=== PATIENT | female | born 1935 | race Caucasian/White ===

== ENCOUNTER 2021-03-31 17:23 | Emergency (ER) | payer MEDICARE ==
[2021-03-31 17:51] VITALS: RESP 16; TEMP 98.2
[2021-03-31 18:29] LABS: Basophils # (A) 0.1 k/uL (0-0.2); Basophils % (A) 1 %; Eosinophils # (A) 0.1 k/uL (0-0.7); Eosinophils % (A) 2 %; HCT 40.9 % (34.0-46.0); HGB 13.2 gm/dL (11.4-16.0); Lymphocytes # (A) 2.6 k/uL (1.0-4.8); Lymphocytes % (A) 39 %; MCH 31.2 pg (25.0-35.0); MCHC 32.3 g/dL (31.0-37.0); MCV 96.6 fL (80.0-100.0); Mean Platelet Volume 7.4; Monocytes # (A) 0.6 k/uL (0-1.0); Monocytes % (A) 9 %; Neutrophils # (A) 3.2 k/uL (1.3-7.7); Neutrophils % (A) 48 %; Platelet Count 333 k/uL (150-450); RBC 4.23 m/uL (3.80-5.40); RDW 13.8 % (11.5-15.5); WBC 6.7 k/uL (3.8-10.6)
[2021-03-31 18:44] LABS: ALT 18 U/L (4-34); AST 49 U/L (14-36); African American GFR (CKD) 45 (>60 ml/min/1.73 sqM); Albumin 4.2 g/dL (3.5-5.0); Alcohol <10 mg/dL; Alkaline Phosphatase 82 U/L (38-126); Anion Gap 10 mmol/L; Blood Urea Nitrogen 22 mg/dL (7-17); Calcium 9.6 mg/dL (8.4-10.2); Carbon Dioxide 23 mmol/L (22-30); Chloride 100 mmol/L (98-107); Glucose 91 mg/dL (74-99); Non-African American GFR(CKD) 39 (>60 ml/min/1.73 sqM); Sodium 133 mmol/L (137-145); Total Bilirubin 0.9 mg/dL (0.2-1.3); Total Protein 7.3 g/dL (6.3-8.2)
[2021-03-31 18:46] LABS: Potassium 5.4 mmol/L (3.5-5.1)
--- NOTE | 2021-03-31 18:52 | ED ---
Psych HPI - General Chief Complaint: Psychiatric Symptoms Stated Complaint: Mental Health,Sent in by PCP Time Seen by Provider: 03/31/21 17:52 Source: patient Mode of arrival: ambulatory - History of Present Illness Initial Comments: This 86-year-old female presents to the emergency department for suicidal comments and for a psychiatric evaluation. Patient lives at home with daughter who states she has been threatening committing suicide for years, however, 2 days ago she took out a pair of scissors and held them to her abdomen. Patient's daughter then took all sharp objects out of the house and put them were patient could not get them. Patient then stated "Well if youre going to take everything sharp of the house, I will just go into the street and get hit by a car." While talking to the patient, she states she has been diagnosed with depression but does not take any medication for it. She does not see a psychiatrist and has never in her past. Patient denies ever holding scissors up and threatening to kill herself. Patient states she does sometimes feel like she wants to , however, she states " I wouldn't actually be able to do it." Patient states she is not currently suicidal and never has wanted to hurt anybody else. Denies any chest pain, shortness breath, abdominal pain, change in bowel or bladder, headache, dizziness, change in vision. - Related Data Home Medications Medication Instructions Recorded Confirmed Cholecalciferol [Vitamin D3 (25 25 mcg PO DAILY 03/31/21 03/31/21 Mcg = 1000 Iu)] Clopidogrel [Plavix] 75 mg PO DAILY 03/31/21 03/31/21 Cyanocobalamin (Vitamin B-12) 1,000 mcg PO DAILY 03/31/21 03/31/21 [Vitamin B-12] Levothyroxine Sodium [Synthroid] 75 mcg PO DAILY 03/31/21 03/31/21 Melatonin Unknown Dose 1 tab PO HS 03/31/21 03/31/21 Metoprolol Tartrate [Lopressor] 50 mg PO TID 03/31/21 03/31/21 Multivitamins, Thera [Multivitamin 1 tab PO DAILY 03/31/21 03/31/21 (formulary)] Pantoprazole [Protonix] 40 mg PO DAILY 03/31/21 03/31/21 Verapamil HCl [Verapamil ER] 240 mg PO DAILY 03/31/21 03/31/21 Allergies Allergy/AdvReac Type Severity Reaction Status Date / Time No Known Allergies Allergy Verified 03/31/21 19:37 Review of Systems ROS Statement: Those systems with pertinent positive or pertinent negative responses have been documented in the HPI. ROS Other: All systems not noted in ROS Statement are negative. Past Medical History Past Medical History: COPD, CVA/TIA, Hypertension Additional Past Medical History / Comment(s): hard of hearing. arthritis. dementia History of Any Multi-Drug Resistant Organisms: None Reported Past Surgical History: No Surgical Hx Reported Past Psychological History: No Psychological Hx Reported Smoking Status: Never smoker Past Alcohol Use History: None Reported Past Drug Use History: None Reported General Exam Limitations: no limitations General appearance: alert, in no apparent distress Head exam: Present: atraumatic, normocephalic ENT exam: Present: normal exam, mucous membranes moist Neck exam: Present: normal inspection, full ROM Respiratory exam: Present: normal lung sounds bilaterally. Absent: respiratory distress, wheezes, rales, rhonchi, stridor Cardiovascular Exam: Present: regular rate, normal rhythm, normal heart sounds. Absent: systolic murmur, diastolic murmur, rubs, gallop, clicks GI/Abdominal exam: Present: soft, normal bowel sounds. Absent: distended, tenderness, guarding, rebound, rigid Extremities exam: Present: normal inspection, full ROM Back exam: Present: normal inspection, full ROM. Absent: CVA tenderness (R), CVA tenderness (L) Neurological exam: Present: alert, oriented X3, CN II-XII intact Psychiatric exam: Present: normal affect, depressed Skin exam: Present: warm, dry, intact, normal color. Absent: rash Course Vital Signs 03/31/21 17:39 Temperature 98.2 F Pulse Rate 74 Respiratory 16 Rate Blood Pressure 140/87 O2 Sat by Pulse 97 Oximetry Medical Decision Making - Medical Decision Making This 86-year-old female was brought into the emergency department with suicidal threats worsening over the last couple weeks. Patient's daughter called an ambulance to have her brought here. Patient states she was having a great day until she got into an argument with her daughter and stated she just wants God to take her, however she does not actually want to . CBC unremarkable, sodium 133, potassium 1.4 (slightly hemolyzed), BUN 22, creatinine 1.27, urine unremarkable, toxicology urine opiates detected. Patient seen and evaluated by EPS, they did not recommend the patient be ad mitted to inpatient psychiatry services as she did not meet requirements. Patient and daughter agreeable to plan to return home and follow up with psychiatry and primary care provider in next 1-2 days. Patient states she is not suicidal and does not want to harm or hurt anybody else. Strict return precautions given. Patient sent home in stable condition. Attending is Dr. Arellano - Lab Data Result diagrams: 03/31/21 18:24 03/31/21 18:24 Lab Results 03/31/21 03/31/21 03/31/21 Range/Units 18:24 18:24 19:12 WBC 6.7 (3.8-10.6) k/uL RBC 4.23 (3.80-5.40) m/uL Hgb 13.2 (11.4-16.0) gm/dL Hct 40.9 (34.0-46.0) % MCV 96.6 (80.0-100.0) fL MCH 31.2 (25.0-35.0) pg MCHC 32.3 (31.0-37.0) g/dL RDW 13.8 (11.5-15.5) % Plt Count 333 (150-450) k/uL MPV 7.4 Neutrophils % 48 % Lymphocytes % 39 % Monocytes % 9 % Eosinophils % 2 % Basophils % 1 % Neutrophils # 3.2 (1.3-7.7) k/uL Lymphocytes # 2.6 (1.0-4.8) k/uL Monocytes # 0.6 (0-1.0) k/uL Eosinophils # 0.1 (0-0.7) k/uL Basophils # 0.1 (0-0.2) k/uL Sodium 133 L (137-145) mmol/L Potassium 5.4 H (3.5-5.1) mmol/L Chloride 100 (98-107) mmol/L Carbon Dioxide 23 (22-30) mmol/L Anion Gap 10 mmol/L BUN 22 H (7-17) mg/dL Creatinine 1.27 H (0.52-1.04) mg/dL Est GFR (CKD-EPI)AfAm 45 (>60 ml/min/1.73 sqM) Est GFR (CKD-EPI)NonAf 39 (>60 ml/min/1.73 sqM) Glucose 91 (74-99) mg/dL Calcium 9.6 (8.4-10.2) mg/dL Total Bilirubin 0.9 (0.2-1.3) mg/dL AST 49 H (14-36) U/L ALT 18 (4-34) U/L Alkaline Phosphatase 82 (38-126) U/L Total Protein 7.3 (6.3-8.2) g/dL Albumin 4.2 (3.5-5.0) g/dL Urine Color Urine Appearance (Clear) Urine pH (5.0-8.0) Ur Specific [place] (1.001-1.035) Urine Protein (Negative) Urine Glucose (UA) (Negative) Urine Ketones (Negative) Urine Blood (Negative) Urine Nitrite (Negative) Urine Bilirubin (Negative) Urine Urobilinogen (<2.0) mg/dL Ur Leukocyte Esterase (Negative) Urine Opiates Screen Detected H (NotDetected) Ur Oxycodone Screen Not Detected (NotDetected) Urine Methadone Screen Not Detected (NotDetected) Ur Propoxyphene Screen Not Detected (NotDetected) Ur Barbiturates Screen Not Detected (NotDetected) U Tricyclic Antidepress Not Detected (NotDetected) Ur Phencyclidine Scrn Not Detected (NotDetected) Ur Amphetamines Screen Not Detected (NotDetected) U Methamphetamines Scrn Not Detected (NotDetected) U Benzodiazepines Scrn Not Detected (NotDetected) Urine Cocaine Screen Not Detected (NotDetected) U Marijuana (THC) Screen Not Detected (NotDetected) Serum Alcohol <10 mg/dL 03/31/21 Range/Units 19:12 WBC (3.8-10.6) k/uL RBC (3.80-5.40) m/uL Hgb (11.4-16.0) gm/dL Hct (34.0-46.0) % MCV (80.0-100.0) fL MCH (25.0-35.0) pg MCHC (31.0-37.0) g/dL RDW (11.5-15.5) % Plt Count (150-450) k/uL MPV Neutrophils % % Lymphocytes % % Monocytes % % Eosinophils % % Basophils % % Neutrophils # (1.3-7.7) k/uL Lymphocytes # (1.0-4.8) k/uL Monocytes # (0-1.0) k/uL Eosinophils # (0-0.7) k/uL Basophils # (0-0.2) k/uL Sodium (137-145) mmol/L Potassium (3.5-5.1) mmol/L Chloride (98-107) mmol/L Carbon Dioxide (22-30) mmol/L Anion Gap mmol/L BUN (7-17) mg/dL Creatinine (0.52-1.04) mg/dL Est GFR (CKD-EPI)AfAm (>60 ml/min/1.73 sqM) Est GFR (CKD-EPI)NonAf (>60 ml/min/1.73 sqM) Glucose (74-99) mg/dL Calcium (8.4-10.2) mg/dL Total Bilirubin (0.2-1.3) mg/dL AST (14-36) U/L ALT (4-34) U/L Alkaline Phosphatase (38-126) U/L Total Protein (6.3-8.2) g/dL Albumin (3.5-5.0) g/dL Urine Color Yellow Urine Appearance Clear (Clear) Urine pH 5.5 (5.0-8.0) Ur Specific [place] 1.015 (1.001-1.035) Urine Protein Negative (Negative) Urine Glucose (UA) Negative (Negative) Urine Ketones Negative (Negative) Urine Blood Negative (Negative) Urine Nitrite Negative (Negative) Urine Bilirubin Negative (Negative) Urine Urobilinogen <2.0 (<2.0) mg/dL Ur Leukocyte Esterase Negative (Negative) Urine Opiates Screen (NotDetected) Ur Oxycodone Screen (NotDetected) Urine Methadone Screen (NotDetected) Ur Propoxyphene Screen (NotDetected) Ur Barbiturates Screen (NotDetected) U Tricyclic Antidepress (NotDetected) Ur Phencyclidine Scrn (NotDetected) Ur Amphetamines Screen (NotDetected) U Methamphetamines Scrn (NotDetected) U Benzodiazepines Scrn (NotDetected) Urine Cocaine Screen (NotDetected) U Marijuana (THC) Screen (NotDetected) Serum Alcohol mg/dL Disposition Clinical Impression: Depression Disposition: HOME SELF-CARE Condition: Stable Instructions (If sedation given, give patient instructions): Suicide Prevention (ED), Depression in Older Adults (ED) Additional Instructions: Please return to the emergency department with any concerning, new, worsening symptoms. Please follow up with primary care provider or psychiatrist next 1-2 days. Is patient prescribed a controlled substance at d/c from ED?: No Referrals: Stanley Mccann MD [Primary Care Provider] - 1-2 days Decision Time: 22:14
[2021-03-31 19:20] LABS: Appearance,Urine Clear (Clear); Bilirubin,Urine Negative (Negative); Blood,Urine Negative (Negative); Color,Urine Yellow; Glucose,Urine (UA) Negative (Negative); Ketones,Urine Negative (Negative); Leukocyte Esterase,Urine Negative (Negative); Nitrite,Urine Negative (Negative); PH, Urine 5.5 (5.0-8.0); Protein,Urine Negative (Negative); Specific Gravity,Urine 1.015 (1.001-1.035); Urobilinogen,Urine <2.0 mg/dL (<2.0)
[2021-03-31] MEDS ORDERED: SODIUM CHLORIDE 0.9% 500 ML 500 ML IV STA (19:40)
[2021-03-31 19:52] LABS: Amphetamine Screen,Urine Not Detected (NotDetected); Barbiturate Screen,Urine Not Detected (NotDetected); Benzodiazepines Screen,Urine Not Detected (NotDetected); Cocaine Screen,Urine Not Detected (NotDetected); Methadone Screen, Urine Not Detected (NotDetected); Opiate Screen,Urine Detected (NotDetected); Oxycodone Screen, Urine Not Detected (NotDetected); Phencyclidine Screen,Urine Not Detected (NotDetected); Tricyclic Antidepressant,Urine Not Detected (NotDetected); Urn Cannabinoid Scrn Not Detected (NotDetected)
[2021-03-31 22:39] VITALS: BP 132/76; PULSE 76
== END 2021-03-31 22:38 | disposition home or self-care (01) ==
LOC: EC 17:23
DX: F32.A Depression, unspecified (principal); J44.9 Chronic obstructive pulmonary disease, unspecified; I10 Essential (primary) hypertension; Z79.02 Long term (current) use of antithrombotics/antiplatelets; Z86.73 Personal history of transient ischemic attack (TIA), and cerebral infarction without residual deficits
CPT/HCPCS: 99284; 36415; 80053; 85025; 81003; 80306; G0480; 80320

== ENCOUNTER 2022-09-30 15:17 | Inpatient (IN) | payer MEDICARE ==
[2022-09-30] MEDS: SODIUM CHLORIDE 0.9% 500 ML 500 ML IV SCH ×3 (15:52→18:07)
[2022-09-30 15:56] LABS: Anisocytosis Slight; Basophils % (A) 0 %; Eosinophils # (A) 0.1 k/uL (0-0.7); Eosinophils % (A) 0 %; HCT 40.6 % (34.0-46.0); HGB 12.1 gm/dL (11.4-16.0); Hypochromasia Marked; Lymphocytes # (A) 1.2 k/uL (1.0-4.8); Lymphocytes % (A) 8 %; MCH 29.6 pg (25.0-35.0); MCHC 29.8 g/dL (31.0-37.0); MCV 99.4 fL (80.0-100.0); Macrocytosis Slight; Mean Platelet Volume 8.8; Monocytes # (A) 0.6 k/uL (0-1.0); Monocytes % (A) 4 %; Neutrophils # (A) 11.7 k/uL (1.3-7.7); Neutrophils % (A) 86 %; Platelet Count 552 k/uL (150-450); RBC 4.09 m/uL (3.80-5.40); WBC 13.7 k/uL (3.8-10.6)
[2022-09-30 16:06] LABS: ALT 18 U/L (4-34); AST 33 U/L (14-36); African American GFR (CKD) 54 (>60 ml/min/1.73 sqM); Albumin 3.4 g/dL (3.5-5.0); Alkaline Phosphatase 183 U/L (38-126); Anion Gap 10 mmol/L; Blood Urea Nitrogen 66 mg/dL (7-17); Carbon Dioxide 32 mmol/L (22-30); Chloride 117 mmol/L (98-107); Glucose 88 mg/dL (74-99); Non-African American GFR(CKD) 47 (>60 ml/min/1.73 sqM); Sodium 159 mmol/L (137-145); Total Bilirubin 1.7 mg/dL (0.2-1.3); Total Protein 6.3 g/dL (6.3-8.2)
[2022-09-30 16:21] LABS: Appearance,Urine Turbid (Clear); Bacteria,Urine Occasional /hpf; Bilirubin,Urine Negative (Negative); Blood,Urine Small (Negative); Color,Urine Yellow; Glucose,Urine (UA) Negative (Negative); Ketones,Urine Negative (Negative); Leukocyte Esterase,Urine Large (Negative); Mucus,Urine Rare /hpf; Nitrite,Urine Negative (Negative); PH, Urine 7.5 (5.0-8.0); Protein,Urine 1+ (Negative); RBC,Urine 21 /hpf (0-5); Specific Gravity,Urine 1.012 (1.001-1.035); Squamous Epithelial Cell,Urine <1 /hpf (0-4); Triple Phosphate Crystal,Urine Few /hpf; WBC,Urine 125 /hpf (0-5)
[2022-09-30 16:21] LABS: Partial Thromboplastin Time 22.9 sec (22.0-30.0); Prothrombin Time 10.8 sec (9.0-12.0)
--- NOTE | 2022-09-30 16:30 | XR ---
EXAMINATION TYPE: XR chest 1V portable DATE OF EXAM: 09/30/2022 Comparison: None Clinical History: 87-year-old female with Fever Findings: S-shaped scoliosis. Heart mildly enlarged. Hyperinflation. Interstitial prominence. Chronic full-thic kness rotator cuff tears in both shoulders. ACDF hardware. No consolidation or pleural effusion. IMPRESSION: 1. Mild cardiomegaly and COPD. Interstitial prominence could represent superimposed acute bronchitis. 2. Otherwise, no acute process seen. 3. Scoliosis and chronic full-thickness rotator cuff tears on both sides.
--- NOTE | 2022-09-30 17:45 | CT ---
EXAMINATION TYPE: CT angio chest DATE OF EXAM: 09/30/2022 COMPARISON: Radiograph 09/30/2022 HISTORY: 87-year-old female SOB, elevated d-dimer TECHNIQUE: Contiguous axial scanning of the chest performed with IV Contrast, patient injected with 8 0 mL of Isovue 370. Coronal/sagittal MIP reconstructions performed. CT DLP: 155.8 mGycm Automated exposure control for dose reduction was used. FINDINGS: The heart is borderline enlarged. No pericardial effusion. Moderate atherosclerotic calcifications. Conventional arch vessel branching anatomy. No thoracic lymphadenopathy by CT size criteria. Satisfactory opacification pulmonary arterial system without evidence for pulmonary embolus. Septal lines. Right apical pleural-parenchymal scarring. Patchy interstitial changes bilaterally. Mil d groundglass in the left base. Patchy opacity posterior right base. No pleural effusion. Some retained fluid seen throughout the thoracic esophagus. Partially visualized diffuse prominence t o the main pancreatic duct, upper limits of normal at 3 mm. S-shaped scoliosis. T5 vertebral compression deformity is age indeterminate but probably chronic give n the lack of any surrounding inflammation. Bilateral chronic full-thickness rotator cuff tears. Adva nced degenerative change both shoulders. IMPRESSION: 1. NO EVIDENCE FOR PULMONARY EMBOLUS. 2. COPD. 3. Scattered septal thickening and patchy interstitial changes bilaterally. Patchy opacity posterior right base and mild groundglass in the left base. Correlate to exclude atypical pneumonia or mild pul monary vascular congestion. 4. Some retained fluid seen throughout the thoracic esophagus could be due to esophageal dysmotility or gastroesophageal reflux disease. 5. S-shaped scoliosis, osteopenia, and suspected chronic T5 vertebral compression collapse. Bilateral rotator cuff arthropathy.
[2022-09-30] MEDS ORDERED: cefTRIAXone IN SWFI 1,000 MG/10 ML SYRINGE IVP STA (17:53)
--- NOTE | 2022-09-30 18:56 | ED ---
General Adult HPI - General Chief complaint: Altered Mental Status Stated complaint: AMS Time Seen by Provider: 09/30/22 15:19 Source: patient Mode of arrival: EMS Limitations: altered mental status - History of Present Illness Initial comments: This is a 87-year-old female who was sent into the emergency department by her nursing facility for altered mental status. It was reported by EMS and the assisted that the patient was altered the last 24 hours and was sent in. Per the patient's records, the patient suffered a right hip fracture and was sent to the assisted for rehabilitation suffering a fracture on September 15. The patient was reportedly ANO 3 previously but this was not confirmed by EMS nor by the nursing facility. On arrival, the patient was nonverbal and unable to answer any questions. The patient had normal vital signs and did not appear in any acute distress however. No further history was obtained at this time by the patient nor by EMS nor by the assisted. - Related Data Home Medications Medication Instructions Recorded Confirmed Cholecalciferol [Vitamin D3 (25 25 mcg PO DAILY 03/31/21 03/31/21 Mcg = 1000 Iu)] Clopidogrel [Plavix] 75 mg PO DAILY 03/31/21 03/31/21 Cyanocobalamin (Vitamin B-12) 1,000 mcg PO DAILY 03/31/21 03/31/21 [Vitamin B-12] Levothyroxine Sodium [Synthroid] 75 mcg PO DAILY 03/31/21 03/31/21 Melatonin Unknown Dose 1 tab PO HS 03/31/21 03/31/21 Metoprolol Tartrate [Lopressor] 50 mg PO TID 03/31/21 03/31/21 Multivitamins, Thera [Multivitamin 1 tab PO DAILY 03/31/21 03/31/21 (formulary)] Pantoprazole [Protonix] 40 mg PO DAILY 03/31/21 03/31/21 Verapamil HCl [Verapamil ER] 240 mg PO DAILY 03/31/21 03/31/21 Allergies Allergy/AdvReac Type Severity Reaction Status Date / Time No Known Allergies Allergy Verified 09/30/22 18:54 Review of Systems ROS Statement: Those systems with pertinent positive or pertinent negative responses have been documented in the HPI. ROS Other: All systems not noted in ROS Statement are negative. Past Medical History Past Medical History: COPD, CVA/TIA, Hypertension Additional Past Medical History / Comment(s): hard of hearing. arthritis. dementia History of Any Multi-Drug Resistant Organisms: None Reported Past Surgical History: No Surgical Hx Reported Past Psychological History: No Psychological Hx Reported Smoking Status: Never smoker Past Alcohol Use History: None Reported Past Drug Use History: None Reported General Exam Limitations: altered mental status (ANOx0) General appearance: in no apparent distress, lethargic Head exam: Present: atraumatic, normocephalic, normal inspection Eye exam: Present: normal appearance Pupils: Present: normal accommodation ENT exam: Present: normal exam, normal oropharynx, mucous membranes moist Neck exam: Present: normal inspection, full ROM Respiratory exam: Present: normal lung sounds bilaterally Cardiovascular Exam: Present: regular rate, normal rhythm, normal heart sounds GI/Abdominal exam: Present: soft, normal bowel sounds Extremities exam: Present: normal inspection, full ROM Back exam: Present: normal inspection, full ROM Neurological exam: Present: altered Psychiatric exam: Present: other (Lethargic) Skin exam: Present: warm, dry Course Vital Signs 09/30/22 09/30/22 09/30/22 15:23 15:26 15:30 Temperature 98.9 F Pulse Rate 100 93 98 Respiratory 40 H Rate Blood Pressure 133/74 133/74 O2 Sat by Pulse 98 99 Oximetry 09/30/22 09/30/22 09/30/22 15:40 15:50 15:52 Temperature Pulse Rate 98 98 98 Respiratory 40 H Rate Blood Pressure 133/74 133/74 114/67 O2 Sat by Pulse 98 97 Oximetry 09/30/22 09/30/22 09/30/22 16:00 16:10 16:20 Temperature Pulse Rate 101 H 81 89 Respiratory 40 H Rate Blood Pressure 114/67 131/71 131/71 O2 Sat by Pulse 95 Oximetry 09/30/22 09/30/22 09/30/22 16:29 16:30 16:40 Temperature Pulse Rate 80 80 80 Respiratory 12 Rate Blood Pressure 115/62 131/71 115/62 O2 Sat by Pulse 90 L Oximetry 09/30/22 09/30/22 09/30/22 16:50 17:00 17:20 Temperature Pulse Rate 81 94 69 Respiratory 24 Rate Blood Pressure 115/62 115/62 O2 Sat by Pulse 68 L 98 71 L Oximetry 09/30/22 09/30/22 09/30/22 17:30 17:40 17:50 Temperature Pulse Rate 71 68 75 Respiratory Rate Blood Pressure 111/66 111/66 O2 Sat by Pulse 100 98 Oximetry EKG Findings - EKG Comments: EKG Findings:: An EKG was obtained and was interpreted by myself showing a rate of 95, IA interval 150, QR caodaism of 75 and QTC of 458. This EKG showed a normal sinus rhythm with no ST segment elevation or depression noted. Medical Decision Making - Medical Decision Making Was pt. sent in by a medical professional or institution (, PA, REGISTERED ROUTE ASSOCIATE, urgent care, hospital, or assisted...) When possible be specific @ -Yes, sent in by the assisted Did you speak to anyone other than the patient for history (EMS, parent, family, police, friend...)? What history was obtained from this source @ -No Did you review nursing and triage notes (agree or disagree)? Why? @ -I reviewed and agree with nursing and triage notes Were old charts reviewed (outside hosp., previous admission, EMS record, old EKG, old radiological studies, urgent care reports/EKG's, assisted records)? Report findings @ -Old assisted charts were reviewed as well as the old H&P from the previous hospital admission when the patient suffered a right hip fracture. Differential Diagnosis (chest pain, altered mental status, abdominal pain women, abdominal pain men, vaginal bleeding, weakness, fever, dyspnea, syncope, headache, dizziness, GI bleed, back pain, seizure, CVA, palpatations, mental health)? @ -Pulmonary embolism, pneumonia, UTI, sepsis EKG interpreted by me (3pts min.). @ -As above X-rays interpreted by me (1pt min.). @ -Chest x-ray was obtained and was interpreted by myself showing mild cardio megaly and COPD. There was interstitial prominence that could represent superimposed acute bronchitis. There was otherwise no acute process. CT interpreted by me (1pt min.). @ -CTA of the chest was obtained and was interpreted by myself showing no evidence for PE. There was COPD. there is scattered septal thickening and patchy interstitial changes bilaterally. There is some retained fluid seen throughout the thoracic esophagus which could be due to esophageal dysmotility or reflux. There was chronic T5 vertebral depression collapsed. U/S interpreted by me (1pt. min.). @ -None done What testing was considered but not performed or refused? (CT, X-rays, U/S, labs)? Why? @ -None What meds were considered but not given or refused? Why? @ -None Did you discuss the management of the patient with other professionals (pro maliksionals i.e. , PA, REGISTERED ROUTE ASSOCIATE, lab, RT, psych nurse, social work associate, wharfinger chief, teacher, district fire management officer, case mgr)? Give summary @ -Yes, admitting physician was contacted regarding admission. Was smoking cessation discussed for >3mins.? @ -No Was critical care preformed (if so, how long)? @ -No Were there social determinants of health that impacted care today? How? (Homelessness, low income, unemployed, alcoholism, drug addiction, transportation, low edu. Level, literacy, decrease access to med. care, half-way, rehab)? @ -No Was there de-escalation of care discussed even if they declined (Discuss DNR or withdrawal of care, Hospice)? DNR status @ -No What co-morbidities impacted this encounter? (DM, HTN, Smoking, COPD, CAD, Cancer, CVA, ARF, Chemo, Hep., AIDS, mental health diagnosis, sleep apnea, morbid obesity)? @ -Hypertension Was patient admitted / discharged? Hospital course, mention meds given and route, prescriptions, significant lab abnormalities, going to OR and other pertinent info. @ -The patient was seen and evaluated emergency department. On physical exam, the patient was ANO 0 however had normal vital signs. Due to the patient's concerning signs for sepsis, full sepsis workup was obtained. Laboratory workup showed an elevated white blood cell count and signs of dehydration and the patient was given 1.5 L of normal saline per sepsis protocol. A d-dimer quantitative of 6.14 was also obtained secondary to the patient's recent surgery. CTA however was negative for a PE at this time. Urinalysis was positive for a UTI and likely the cause of her sepsis. The patient was given a gram Rocephin and cultures were obtained. Due to the patient's altered mental status in the setting of possible sepsis with UTI, the patient will be admitted for further workup and evaluation. They may physician was contacted regarding a dmission. Undiagnosed new problem with uncertain prognosis? @ -No Drug Therapy requiring intensive monitoring for toxicity (Heparin, Nitro, Insu anna, Cardizem)? @ -No Were any procedures done? @ -No Diagnosis/symptom? @ -Altered mental status secondary to sepsis and UTI. Acute, or Chronic, or Acute on Chronic? @ -Acute Uncomplicated (without systemic symptoms) or Complicated (systemic symptoms)? @ -Complicated Side effects of treatment? @ -No Exacerbation, Progression, or Severe Exacerbation? @ -No Poses a threat to life or bodily function? How? (Chest pain, [place], [place], pneumonia, PE, COPD, DKA, ARF, appy, cholecystitis, CVA, Diverticulitis, Homicidal, Suicidal, threat to staff... and all critical care pts) @ -Yes, continued UTI and sepsis can lead to possible permanent damage and possible . - Lab Data Result diagrams: 09/30/22 15:39 09/30/22 15:39 Lab Results 09/30/22 09/30/22 09/30/22 Range/Units 15:30 15:39 15:39 WBC 13.7 H (3.8-10.6) k/uL RBC 4.09 (3.80-5.40) m/uL Hgb 12.1 (11.4-16.0) gm/dL Hct 40.6 (34.0-46.0) % MCV 99.4 (80.0-100.0) fL MCH 29.6 (25.0-35.0) pg MCHC 29.8 L (31.0-37.0) g/dL RDW 16.0 H (11.5-15.5) % Plt Count 552 H (150-450) k/uL MPV 8.8 Neutrophils % 86 % Lymphocytes % 8 % Monocytes % 4 % Eosinophils % 0 % Basophils % 0 % Neutrophils # 11.7 H (1.3-7.7) k/uL Lymphocytes # 1.2 (1.0-4.8) k/uL Monocytes # 0.6 (0-1.0) k/uL Eosinophils # 0.1 (0-0.7) k/uL Basophils # 0.0 (0-0.2) k/uL Hypochromasia Marked Anisocytosis Slight Macrocytosis Slight PT 10.8 (9.0-12.0) sec INR 1.0 (<1.2) APTT 22.9 (22.0-30.0) sec D-Dimer 6.14 H (<0.60) mg/L FEU Sodium (137-145) mmol/L Potassium (3.5-5.1) mmol/L Chloride (98-107) mmol/L Carbon Dioxide (22-30) mmol/L Anion Gap mmol/L BUN (7-17) mg/dL Creatinine (0.52-1.04) mg/dL Est GFR (CKD-EPI)AfAm (>60 ml/min/1.73 sqM) Est GFR (CKD-EPI)NonAf (>60 ml/min/1.73 sqM) Glucose (74-99) mg/dL Plasma Lactic Acid Abhay (0.7-2.0) mmol/L Calcium (8.4-10.2) mg/dL Total Bilirubin (0.2-1.3) mg/dL AST (14-36) U/L ALT (4-34) U/L Alkaline Phosphatase (38-126) U/L Total Protein (6.3-8.2) g/dL Albumin (3.5-5.0) g/dL Urine Color Yellow Urine Appearance Turbid H (Clear) Urine pH 7.5 (5.0-8.0) Ur Specific Mcbain 1.012 (1.001-1.035) Urine Protein 1+ H (Negative) Urine Glucose (UA) Negative (Negative) Urine Ketones Negative (Negative) Urine Blood Small H (Negative) Urine Nitrite Negative (Negative) Urine Bilirubin Negative (Negative) Urine Urobilinogen 2.0 (<2.0) mg/dL Ur Leukocyte Esterase Large H (Negative) Urine RBC 21 H (0-5) /hpf Urine WBC 125 H (0-5) /hpf Ur Squamous Epith Cells <1 (0-4) /hpf Triple Phos Crystals Few H (None) /hpf Urine Bacteria Occasional H (None) /hpf Urine Mucus Rare H (None) /hpf 09/30/22 09/30/22 Range/Units 15:39 15:39 WBC (3.8-10.6) k/uL RBC (3.80-5.40) m/uL Hgb (11.4-16.0) gm/dL Hct (34.0-46.0) % MCV (80.0-100.0) fL MCH (25.0-35.0) pg MCHC (31.0-37.0) g/dL RDW (11.5-15.5) % Plt Count (150-450) k/uL MPV Neutrophils % % Lymphocytes % % Monocytes % % Eosinophils % % Basophils % % Neutrophils # (1.3-7.7) k/uL Lymphocytes # (1.0-4.8) k/uL Monocytes # (0-1.0) k/uL Eosinophils # (0-0.7) k/uL Basophils # (0-0.2) k/uL Hypochromasia Anisocytosis Macrocytosis PT (9.0-12.0) sec INR (<1.2) APTT (22.0-30.0) sec D-Dimer (<0.60) mg/L FEU Sodium 159 H (137-145) mmol/L Potassium 4.0 (3.5-5.1) mmol/L Chloride 117 H (98-107) mmol/L Carbon Dioxide 32 H (22-30) mmol/L Anion Gap 10 mmol/L BUN 66 H (7-17) mg/dL Creatinine 1.08 H (0.52-1.04) mg/dL Est GFR (CKD-EPI)AfAm 54 (>60 ml/min/1.73 sqM) Est GFR (CKD-EPI)NonAf 47 (>60 ml/min/1.73 sqM) Glucose 88 (74-99) mg/dL Plasma Lactic Acid Abhay 1.3 (0.7-2.0) mmol/L Calcium 9.0 (8.4-10.2) mg/dL Total Bilirubin 1.7 H (0.2-1.3) mg/dL AST 33 (14-36) U/L ALT 18 (4-34) U/L Alkaline Phosphatase 183 H (38-126) U/L Total Protein 6.3 (6.3-8.2) g/dL Albumin 3.4 L (3.5-5.0) g/dL Urine Color Urine Appearance (Clear) Urine pH (5.0-8.0) Ur Specific Mcbain (1.001-1.035) Urine Protein (Negative) Urine Glucose (UA) (Negative) Urine Ketones (Negative) Urine Blood (Negative) Urine Nitrite (Negative) Urine Bilirubin (Negative) Urine Urobilinogen (<2.0) mg/dL Ur Leukocyte Esterase (Negative) Urine RBC (0-5) /hpf Urine WBC (0-5) /hpf Ur Squamous Epith Cells (0-4) /hpf Triple Phos Crystals (None) /hpf Urine Bacteria (None) /hpf Urine Mucus (None) /hpf Disposition Clinical Impression: Sepsis, AMS (altered mental status), Hypernatremia, UTI (urinary tract i nfection) Disposition: ADMITTED IP TO THIS HOSP Condition: Stable Is patient prescribed a controlled substance at d/c from ED?: No Referrals: Boyd Montoya MD [Primary Care Provider] - 1-2 days Time of Disposition: 17:00 Decision to Admit Reason: Admit from EC Decision Date: 09/30/22 Decision Time: 17:00
[2022-09-30] MEDS ORDERED: NALOXONE 0.4 MG/ML 1 ML VIAL IV PRN (19:09)
[2022-10-01] MEDS: IPRATROPIUM-ALBUTEROL 3 ML NEB INHALATION SCH ×3 (08:42→16:01)
--- NOTE | 2022-10-01 08:54 | XR ---
EXAMINATION TYPE: XR chest 1V portable DATE OF EXAM: 10/01/2022 COMPARISON: 09/30/2022 HISTORY: Shortness of breath TECHNIQUE: Single frontal view of the chest is obtained. FINDINGS: There is no focal air space opacity, pleural effusion, or pneumothorax seen. The cardiac silhouette size is within normal limits. COPD changes. There is diffuse osteopenia and chronic rotator cuff tears of both shoulders. IMPRESSION: No acute cardiopulmonary disease with no interval change.
[2022-10-01 08:58] LABS: ABG Base Excess 3.9 mmol/L; ABG HCO3 27 mmol/L (21-25); ABG Oxygen Saturation 91.8 % (94-97); ABG PCO2 36 mmHg (35-45); ABG PH 7.49 (7.35-7.45); ABG PO2 60 mmHg (83-108); ABG TCO2 28 mmol/L (19-24); Allen Test Performed? Yes
[2022-10-01] MEDS ORDERED: Acetaminophen-Codeine 300-30mg TAB PO PRN (09:36)
[2022-10-01] MEDS ORDERED: DEXTROSE 5%-0.45% NACL 1,000 ML IV SCH (09:45)
[2022-10-01] MEDS: MORPHINE SULFATE 2 MG/ML SYRINGE IVP PRN ×2 (09:49→16:33)
--- NOTE | 2022-10-01 10:21 | CT ---
EXAMINATION TYPE: CT brain wo con DATE OF EXAM: 10/01/2022 COMPARISON: MRI 03/28/2010 HISTORY: 87-year-old female confusion, altered mental status TECHNIQUE: Examination was done in axial plane without intravenous contrast. Coronal and sagittal r econstructions performed. CT DLP: 1164.4 mGycm Automated exposure control for dose reduction was used. FINDINGS: There is no evidence of acute intracranial hemorrhage, acute ischemic changes, mass, mass-effect, or extra-axial fluid collection. There is no effacement of cerebral sulci or basal subarachnoid cister ns. There is no hydrocephalus. There is no midline shift. Javier-white matter distinction is preserv ed. Moderate generalized supratentorial volume loss. Secondary mild prominence to the ventricular system. Metastatic calcifications within the carotid siphons. Moderate patchy and confluent white matter hyp odensities in both cerebral hemispheres. There is some scalp soft tissue nodularity measuring up to 1.8 cm along the anterior superior right f rontal region. Benign hyperostosis frontalis interna. Paranasal sinuses and mastoid air cells are well pneumatized. Orbits and globes are intact. IMPRESSION: 1. Moderate generalized atrophy and moderate confluent burden of chronic small vessel ischemic diseas e. Changes have significantly progressed from the patient's 03/28/2010 MRI. No acute intracranial abno rmality seen. 2. Some scalp soft tissue nodularity superiorly along the right frontal convexity measuring up to 1.8 cm. Correlate with physical exam findings. Question some type of injury or cutaneous lesions.
[2022-10-01] MEDS ORDERED: DEXTROSE 5% IN WATER 1,000 ML IV SCH (10:30)
[2022-10-01] MEDS ORDERED: AZITHROMYCIN 500 MG in SODIUM CHLORIDE 0.9% 250 ML IVPB SCH (10:30)
[2022-10-01] MEDS ORDERED: PIPERACILLIN-TAZOBACTAM 3.375 GM in SODIUM CHLORIDE 0.9% 100 ML IVPB ONE (10:30)
--- NOTE | 2022-10-01 11:21 | P.CNPUL ---
History of Present Illness Consult date: 10/01/22 Reason for consult: dyspnea History of present illness: Extremely debilitated 87-year-old female patient with a body mass index of 17.6, transferred from [facility] for altered mental status, tachypnea, dehydration and overall weakness and failure to thrive. It was reported by EMS and the [facility] that the patient was altered the last 24 hours and was sent in. Per the patient's records, the patient suffered a right hip fracture and was sent to the [facility] for [facility] suffering a fracture on September 15. The patient was reportedly ANO 3 previously but this was not confirmed by EMS nor by the nursing facility. On arrival, the patient was nonverbal and unable to answer any questions. The patient had normal vital signs and did not appear in any acute distress however. No further history was obtained at this time by the patient nor by EMS nor by the [facility]. Upon arrival, the patient was found to have a white cell count of 13.7, hemoglobin was 12. The sodium level was 159, potassium level is at 4, current 170 with a bicarb of 32, BUN is 66 with a creatinine of 1.0. UA is consistent with underlying infection and CT angiogram of the chest was done and it showed COPD, scattered septal thickening and patchy interstitial changes bilaterally, patchy opacity posteriorly and the right lung base and there is some retained fluid seen in the thoracic esophagus and an S-shaped scoliosis, osteopenia, compression T5 vertebral fracture in addition to background COPD. The patient is lethargic. The patient is unable to communicate. She looks extremely dry with dry mucous membranes. Review of Systems ROS unobtainable: due to mental status Past Medical History Past Medical History: COPD, CVA/TIA, Hypertension Additional Past Medical History / Comment(s): hard of hearing. arthritis. dementia. chronic back pain History of Any Multi-Drug Resistant Organisms: None Reported Past Surgical History: Back Surgery, Orthopedic Surgery Additional Past Surgical History / Comment(s): hip fx 2022 Past Psychological History: No Psychological Hx Reported Smoking Status: Never smoker Past Alcohol Use History: None Reported Past Drug Use History: None Reported Medications and Allergies Home Medications Medication Instructions Recorded Confirmed Type Clopidogrel [Plavix] 75 mg PO DAILY@89903/31/21 09/30/22 History Multivitamins, Thera [Multivitamin 1 tab PO DAILY@89903/31/21 09/30/22 History (formulary)] Pantoprazole [Protonix] 40 mg PO DAILY@0600 03/31/21 09/30/22 History Acetaminophen Tab [Tylenol] 325 mg PO Q6H PRN 09/30/22 09/30/22 History Acetaminophen-Codeine 300-30mg 1 tab PO Q6H PRN 09/30/22 09/30/22 History [Tylenol w/codeine #3] Albuterol Inhaler [Ventolin Hfa 1 - 2 puff INHALATION RT-Q4H 09/30/22 09/30/22 History Inhaler] Aspirin EC [Ecotrin Low Dose] 81 mg PO BID@0900,209909/30/22 09/30/22 History Furosemide [Lasix] 20 mg PO DAILY@59909/30/22 09/30/22 History Isosorbide Mononitrate ER [Imdur] 30 mg PO DAILY@0909/30/22 09/30/22 History Lactose-Reduced Food [Ensure Plus] 1 can PO TID-W/MEALS 09/30/22 09/30/22 History Levothyroxine Sodium [Synthroid] 88 mcg PO DAILY@0609/30/22 09/30/22 History Melatonin 10 mg PO HS@2200 09/30/22 09/30/22 History Metoprolol Tartrate [Lopressor] 25 mg PO BID@0900,209909/30/22 09/30/22 History Potassium Chloride ER [K-Dur 10] 10 meq PO DAILY@0909/30/22 09/30/22 History Verapamil HCl [Verapamil ER] 120 mg PO DAILY@89909/30/22 09/30/22 History Allergies Allergy/AdvReac Type Severity Reaction Status Date / Time No Known Allergies Allergy Verified 09/30/22 18:54 Physical Exam Vitals: Vital Signs Temp Pulse Pulse Resp BP BP Pulse Ox 10/01/22 09:11 120 H 10/01/22 09:01 114 H 10/01/22 08:44 90 L 10/01/22 08:15 34 H 10/01/22 07:11 98.8 F 76 16 135/74 95 10/01/22 01:52 98.1 F 88 18 122/75 95 09/30/22 21:15 97.8 F 72 18 100/65 98 09/30/22 20:20 68 16 104/60 92 L 09/30/22 19:00 75 20 106/59 96 09/30/22 18:00 63 24 140/66 94 L 09/30/22 17:50 75 111/66 98 09/30/22 17:40 68 111/66 100 09/30/22 17:30 71 09/30/22 17:20 69 71 L 09/30/22 17:00 94 24 115/62 98 09/30/22 16:50 81 115/62 68 L 09/30/22 16:40 80 115/62 09/30/22 16:30 80 131/71 09/30/22 16:29 80 12 115/62 90 L 09/30/22 16:20 89 131/71 09/30/22 16:10 81 131/71 95 09/30/22 16:00 101 H 40 H 114/67 09/30/22 15:52 98 40 H 114/67 97 09/30/22 15:50 98 133/74 09/30/22 15:40 98 133/74 98 09/30/22 15:30 98 133/74 99 09/30/22 15:26 98.9 F 93 40 H 133/74 98 09/30/22 15:23 100 Intake and Output 09/30/22 10/01/22 10/01/22 22:59 06:59 14:59 Other: Voiding Method Diaper # Voids 2 Weight 40.823 kg Debilitated, lethargic, dry with dry mucous membranes in a body mass index is 17 .6 she is currently on 2 L of oxygen by nasal cannula. Head exam was generally normal. There was no scleral icterus or corneal arcus. Mucous membranes were extremely dry Neck was supple and without jugular venous distension, thyromegaly, or carotid bruits. Carotids were easily palpable bilaterally. There was no adenopathy. Lungs sounds are diminished. The patient has diminished breath on bilaterally and she is tachypneic at this point in time. Cardiac exam revealed the PMI to be normally situated and sized. The rhythm was regular and no extrasystoles were noted during several minutes of auscultation. The first and second heart sounds were normal and physiologic splitting of the second heart sound was noted. There were no murmurs, rubs, clicks, or gallops. Abdominal exam revealed normal bowel sounds. The abdomen was soft, non-tender, and without masses, organomegaly, or appreciable enlargement of the abdominal aorta. Extremities showed diffuse muscle atrophy, she is rating many boots at this point in time. Pulses are diminished at the present. No open wounds or sores. Neurologically, unable to communicate and the patient is encephalopathic. Results - Laboratory Findings CBC and BMP: 09/30/22 15:39 09/30/22 15:39 ABG ABG pH 7.49 (7.35-7.45) H 10/01/22 08:54 ABG pCO2 36 mmHg (35-45) 10/01/22 08:54 ABG pO2 60 mmHg (83-108) L 10/01/22 08:54 ABG O2 Saturation 91.8 % (94-97) L 10/01/22 08:54 PT/INR, D-dimer PT 10.8 sec (9.0-12.0) 09/30/22 15:39 INR 1.0 (<1.2) 09/30/22 15:39 D-Dimer 6.14 mg/L FEU (<0.60) H 09/30/22 15:39 Abnormal lab findings: Abnormal Labs 09/30/22 09/30/22 09/30/22 15:30 15:39 15:39 WBC 13.7 H MCHC 29.8 L RDW 16.0 H Plt Count 552 H Neutrophils # 11.7 H D-Dimer 6.14 H ABG pH ABG pO2 ABG HCO3 ABG Total CO2 ABG O2 Saturation Sodium Chloride Carbon Dioxide BUN Creatinine Total Bilirubin Alkaline Phosphatase Albumin Urine Appearance Turbid H Urine Protein 1+ H Urine Blood Small H Ur Leukocyte Esterase Large H Urine RBC 21 H Urine WBC 125 H Triple Phos Crystals Few H Urine Bacteria Occasional H Urine Mucus Rare H 09/30/22 10/01/22 15:39 08:54 WBC MCHC RDW Plt Count Neutrophils # D-Dimer ABG pH 7.49 H ABG pO2 60 L ABG HCO3 27 H ABG Total CO2 28 H ABG O2 Saturation 91.8 L Sodium 159 H Chloride 117 H Carbon Dioxide 32 H BUN 66 H Creatinine 1.08 H Total Bilirubin 1.7 H Alkaline Phosphatase 183 H Albumin 3.4 L Urine Appearance Urine Protein Urine Blood Ur Leukocyte Esterase Urine RBC Urine WBC Triple Phos Crystals Urine Bacteria Urine Mucus - Diagnostic Findings Chest x-ray: image reviewed CT scan - chest: image reviewed Assessment and Plan Plan: Altered mental status, likely due to underlying septic episodes, consider possibility of aspiration pneumonia/UTI Severe dehydration Severe hypernatremia with a sodium level of 159 Acute kidney injury Aspiration pneumonia suspected involving the right lower lobe and the patient has retained fluid within the thoracic esophagus which obviously raises the concern for aspiration Recent hip arthroplasty [facility] resident Scoliosis of the spine Osteopenia T5 vertebral compression collapse, likely chronic Previous history of CVA Hypertension COPD Dementia Plan Start the patient on D5 water at the rate of 150 mL an hour Start the patient on IV Zosyn Blood cultures and urine cultures Keep nothing by mouth for now Continue bronchodilators Monitor electrolytes and sodium level Aspiration precautions DNR/DNI CODE STATUS Very poor prognosis based on the above, case was discussed with the granddaughter the bedside
--- NOTE | 2022-10-01 11:41 | P.NPCON ---
History of Present Illness - Reason for Consult hypernatremia - History of Present Illness Reason for consultation: Hypernatremia History of present illness: Patient is a 87-year-old female seen in renal consultation for hyponatremia. Sodium level CLIX today 09/30/2022. Patient fell and broke her right hip and underwent surgical intervention at [facility] in end of August 2022. Patient is quite lethargic and not able to provide history. Patient's granddaughter is present at bedside who provides the history. Patient was subsequently discharged to [facility] for rehab and was doing well initially but the last one to 2 weeks she has gone downhill. She has been eating and drinking much. Patient is quite lethargic. She was subsequently sent to the hospital. Afebrile. Patient did receive 1.5 L fluid bolus in the ER and was started on D5 W this morning. Blood pressures currently well controlled. Patient is incontinent. No history of diabetes. Denies use of nonsteroidals. Vital signs are stable. General: Lethargic. HEENT: Head exam is unremarkable. LUNGS: No audible rhonchi or wheezes. HEART: Tachycardic. ABDOMEN: Soft, no distention. EXTREMITITES: No edema. Past Medical History Past Medical History: COPD, CVA/TIA, Hypertension Additional Past Medical History / Comment(s): hard of hearing. arthritis. dementia. chronic back pain History of Any Multi-Drug Resistant Organisms: None Reported Past Surgical History: Back Surgery, Orthopedic Surgery Additional Past Surgical History / Comment(s): hip fx 2022 Past Psychological History: No Psychological Hx Reported Smoking Status: Never smoker Past Alcohol Use History: None Reported Past Drug Use History: None Reported Medications and Allergies Home Medications Medication Instructions Recorded Confirmed Type Clopidogrel [Plavix] 75 mg PO DAILY@0903/31/21 09/30/22 History Multivitamins, Thera [Multivitamin 1 tab PO DAILY@0903/31/21 09/30/22 History (formulary)] Pantoprazole [Protonix] 40 mg PO DAILY@0600 03/31/21 09/30/22 History Acetaminophen Tab [Tylenol] 325 mg PO Q6H PRN 09/30/22 09/30/22 History Acetaminophen-Codeine 300-30mg 1 tab PO Q6H PRN 09/30/22 09/30/22 History [Tylenol w/codeine #3] Albuterol Inhaler [Ventolin Hfa 1 - 2 puff INHALATION RT-Q4H 09/30/22 09/30/22 History Inhaler] Aspirin EC [Ecotrin Low Dose] 81 mg PO BID@0900,2100 09/30/22 09/30/22 History Furosemide [Lasix] 20 mg PO DAILY@0609/30/22 09/30/22 History Isosorbide Mononitrate ER [Imdur] 30 mg PO DAILY@0909/30/22 09/30/22 History Lactose-Reduced Food [Ensure Plus] 1 can PO TID-W/MEALS 09/30/22 09/30/22 History Levothyroxine Sodium [Synthroid] 88 mcg PO DAILY@59909/30/22 09/30/22 History Melatonin 10 mg PO HS@0 09/30/22 09/30/22 History Metoprolol Tartrate [Lopressor] 25 mg PO BID@0900,209909/30/22 09/30/22 History Potassium Chloride ER [K-Dur 10] 10 meq PO DAILY@89909/30/22 09/30/22 History Verapamil HCl [Verapamil ER] 120 mg PO DAILY@89909/30/22 09/30/22 History Allergies Allergy/AdvReac Type Severity Reaction Status Date / Time No Known Allergies Allergy Verified 09/30/22 18:54 Physical Exam Vitals: Vital Signs Temp Pulse Pulse Resp BP BP Pulse Ox 10/01/22 09:11 120 H 10/01/22 09:01 114 H 10/01/22 08:44 90 L 10/01/22 08:15 34 H 10/01/22 07:11 98.8 F 76 16 135/74 95 10/01/22 01:52 98.1 F 88 18 122/75 95 09/30/22 21:15 97.8 F 72 18 100/65 98 09/30/22 20:20 68 16 104/60 92 L 09/30/22 19:00 75 20 106/59 96 09/30/22 18:00 63 24 140/66 94 L 09/30/22 17:50 75 111/66 98 09/30/22 17:40 68 111/66 100 09/30/22 17:30 71 09/30/22 17:20 69 71 L 09/30/22 17:00 94 24 115/62 98 09/30/22 16:50 81 115/62 68 L 09/30/22 16:40 80 115/62 09/30/22 16:30 80 131/71 09/30/22 16:29 80 12 115/62 90 L 09/30/22 16:20 89 131/71 09/30/22 16:10 81 131/71 95 09/30/22 16:00 101 H 40 H 114/67 09/30/22 15:52 98 40 H 114/67 97 09/30/22 15:50 98 133/74 09/30/22 15:40 98 133/74 98 09/30/22 15:30 98 133/74 99 09/30/22 15:26 98.9 F 93 40 H 133/74 98 09/30/22 15:23 100 Intake and Output 09/30/22 10/01/22 10/01/22 22:59 06:59 14:59 Other: Voiding Method Diaper # Voids 2 Weight 40.823 kg Results - Lab Results Most recent lab results ABG pH 7.49 (7.35-7.45) H 10/01/22 08:54 ABG pCO2 36 mmHg (35-45) 10/01/22 08:54 ABG pO2 60 mmHg (83-108) L 10/01/22 08:54 ABG HCO3 27 mmol/L (21-25) H 10/01/22 08:54 ABG O2 Saturation 91.8 % (94-97) L 10/01/22 08:54 Calcium 9.0 mg/dL (8.4-10.2) 09/30/22 15:39 09/30/22 15:39 09/30/22 15:39 Assessment and Plan Plan: Assessment: 1. Hypernatremia from lack of oral water intake. Sodium level CLIX yesterday. 2. Acute kidney injury mostly prerenal from hypotension and diuretic use. Creatinine 1.08 yesterday. 3. Fall with right hip fracture status post surgery August 2022. 4. Pneumonia/UTI on antibiotics. Plan: Agree with D5W. Check labs today. Avoid nephrotoxins. Continue to monitor renal function and urine output. Thank you for the consultation. I will continue to follow the patient with you during her hospital stay.
[2022-10-01] MEDS: ALBUTEROL NEBULIZED 2.5 MG/3 ML INHALATION SCH ×2 (12:00→16:01)
--- NOTE | 2022-10-01 13:39 | P.HPIM ---
History of Present Illness H&P Date: 10/01/22 History of present illness; patient is 87-year-old lady with past medical histor y significant for recent hip fracture, hypothyroidism, hypertension who was sent in by her nursing facility for change in mental status. Most of H&P has been taken from the electronic medical records because the patient current mental status, according to EMR nursing staff noticed it she was less responsive the last 24 hours. Did not notice any slurred speech. They didn't notice any weakness of any extremity. Initial lab work done in the ER showed WBC 13.7, hemoglobin 12.1, platelet count 552, sodium 159, potassium 4, BUN 66, creatinine 1.08 Chest x-ray done showed mild cardiomegaly and COPD, superimposed acute bronchitis CTA chest done showed no evidence of pulmonary embolus, showed COPD. Scattered septal thickening and patchy interstitial changes bilaterally, patchy opacity posterior right base and mild groundglass in the left base. Patient was admitted to medicine service REVIEW OF SYSTEMS: Cannot be obtained because of patient's current mental status PHYSICAL EXAMINATION: GENERAL: The patient is lethargic, not in any acute distress. Chronically ill- looking HEENT: Pupils are round and equally reacting to light. EOMI. No scleral icterus. No conjunctival pallor. Normocephalic, atraumatic. No pharyngeal erythema. No thyromegaly. CARDIOVASCULAR S1 plus S2 audible No murmurs, rubs, or gallops. PULMONARY: Coarse breath sounds bilaterally, no wheeze ABDOMEN: Soft, nontender, nondistended, normoactive bowel sounds. No palpable organomegaly. MUSCULOSKELETAL: No joint swelling or deformity. EXTREMITIES: No cyanosis, clubbing, or pedal edema. NEUROLOGICAL: Gross neurological examination did not reveal any focal deficits. SKIN: No rashes. Assessment and plan Acute metabolic encephalopathy Hypernatremia Bacterial pneumonia Acute respiratory failure UTI Monitor vital signs Monitor CBC Monitor CMP Continue telemetry monitoring Follow-up on blood cultures Sputum cultures continue IV Rocephin, add azithromycin CT brain ordered Start D5W for hypernatremia Speech evaluation Consult pulmonology Consulted nephrology Consult neurology Spent more than 50 minutes coordinating patient's care, talking to consultants talking with granddaughter's Labs and medication were reviewed.. Continue same treatment. Continue with symptomatic treatment. Resume home medication. Monitor labs and vitals. DVT and GI prophylaxis. Further recommendations as per clinical course of the patient Past Medical History Past Medical History: COPD, CVA/TIA, Hypertension Additional Past Medical History / Comment(s): hard of hearing. arthritis. dementia. chronic back pain History of Any Multi-Drug Resistant Organisms: None Reported Past Surgical History: Back Surgery, Orthopedic Surgery Additional Past Surgical History / Comment(s): hip fx 2022 Past Psychological History: No Psychological Hx Reported Smoking Status: Never smoker Past Alcohol Use History: None Reported Past Drug Use History: None Reported Medications and Allergies Home Medications Medication Instructions Recorded Confirmed Type Clopidogrel [Plavix] 75 mg PO DAILY@89903/31/21 09/30/22 History Multivitamins, Thera [Multivitamin 1 tab PO DAILY@89903/31/21 09/30/22 History (formulary)] Pantoprazole [Protonix] 40 mg PO DAILY@59903/31/21 09/30/22 History Acetaminophen Tab [Tylenol] 325 mg PO Q6H PRN 09/30/22 09/30/22 History Acetaminophen-Codeine 300-30mg 1 tab PO Q6H PRN 09/30/22 09/30/22 History [Tylenol w/codeine #3] Albuterol Inhaler [Ventolin Hfa 1 - 2 puff INHALATION RT-Q4H 09/30/22 09/30/22 History Inhaler] Aspirin EC [Ecotrin Low Dose] 81 mg PO BID@09,209909/30/22 09/30/22 History Furosemide [Lasix] 20 mg PO DAILY@59909/30/22 09/30/22 History Isosorbide Mononitrate ER [Imdur] 30 mg PO DAILY@89909/30/22 09/30/22 History Lactose-Reduced Food [Ensure Plus] 1 can PO TID-W/MEALS 09/30/22 09/30/22 History Levothyroxine Sodium [Synthroid] 88 mcg PO DAILY@59909/30/22 09/30/22 History Melatonin 10 mg PO HS@219909/30/22 09/30/22 History Metoprolol Tartrate [Lopressor] 25 mg PO BID@0900,209909/30/22 09/30/22 History Potassium Chloride ER [K-Dur 10] 10 meq PO DAILY@89909/30/22 09/30/22 History Verapamil HCl [Verapamil ER] 120 mg PO DAILY@0900 09/30/22 09/30/22 History Allergies Allergy/AdvReac Type Severity Reaction Status Date / Time No Known Allergies Allergy Verified 09/30/22 18:54 Physical Exam Vitals: Vital Signs Temp Pulse Pulse Resp BP BP Pulse Ox 10/01/22 09:11 120 H 10/01/22 09:01 114 H 10/01/22 08:44 90 L 10/01/22 08:15 34 H 10/01/22 07:11 98.8 F 76 16 135/74 95 10/01/22 01:52 98.1 F 88 18 122/75 95 09/30/22 21:15 97.8 F 72 18 100/65 98 09/30/22 20:20 68 16 104/60 92 L 09/30/22 19:00 75 20 106/59 96 09/30/22 18:00 63 24 140/66 94 L 09/30/22 17:50 75 111/66 98 09/30/22 17:40 68 111/66 100 09/30/22 17:30 71 09/30/22 17:20 69 71 L 09/30/22 17:00 94 24 115/62 98 09/30/22 16:50 81 115/62 68 L 09/30/22 16:40 80 115/62 09/30/22 16:30 80 131/71 09/30/22 16:29 80 12 115/62 90 L 09/30/22 16:20 89 131/71 09/30/22 16:10 81 131/71 95 09/30/22 16:00 101 H 40 H 114/67 09/30/22 15:52 98 40 H 114/67 97 09/30/22 15:50 98 133/74 09/30/22 15:40 98 133/74 98 09/30/22 15:30 98 133/74 99 09/30/22 15:26 98.9 F 93 40 H 133/74 98 09/30/22 15:23 100 Intake and Output 09/30/22 10/01/22 10/01/22 22:59 06:59 14:59 Other: Voiding Method Diaper # Voids 2 Weight 40.823 kg Results CBC & Chem 7: 09/30/22 15:39 09/30/22 15:39 Labs: Abnormal Lab Results - Last 24 Hours (Table) 09/30/22 09/30/22 09/30/22 Range/Units 15:30 15:39 15:39 WBC 13.7 H (3.8-10.6) k/uL MCHC 29.8 L (31.0-37.0) g/dL RDW 16.0 H (11.5-15.5) % Plt Count 552 H (150-450) k/uL Neutrophils # 11.7 H (1.3-7.7) k/uL D-Dimer 6.14 H (<0.60) mg/L FEU ABG pH (7.35-7.45) ABG pO2 (83-108) mmHg ABG HCO3 (21-25) mmol/L ABG Total CO2 (19-24) mmol/L ABG O2 Saturation (94-97) % Sodium (137-145) mmol/L Chloride (98-107) mmol/L Carbon Dioxide (22-30) mmol/L BUN (7-17) mg/dL Creatinine (0.52-1.04) mg/dL Total Bilirubin (0.2-1.3) mg/dL Alkaline Phosphatase (38-126) U/L Albumin (3.5-5.0) g/dL Urine Appearance Turbid H (Clear) Urine Protein 1+ H (Negative) Urine Blood Small H (Negative) Ur Leukocyte Esterase Large H (Negative) Urine RBC 21 H (0-5) /hpf Urine WBC 125 H (0-5) /hpf Triple Phos Crystals Few H (None) /hpf Urine Bacteria Occasional H (None) /hpf Urine Mucus Rare H (None) /hpf 09/30/22 10/01/22 Range/Units 15:39 08:54 WBC (3.8-10.6) k/uL MCHC (31.0-37.0) g/dL RDW (11.5-15.5) % Plt Count (150-450) k/uL Neutrophils # (1.3-7.7) k/uL D-Dimer (<0.60) mg/L FEU ABG pH 7.49 H (7.35-7.45) ABG pO2 60 L (83-108) mmHg ABG HCO3 27 H (21-25) mmol/L ABG Total CO2 28 H (19-24) mmol/L ABG O2 Saturation 91.8 L (94-97) % Sodium 159 H (137-145) mmol/L Chloride 117 H (98-107) mmol/L Carbon Dioxide 32 H (22-30) mmol/L BUN 66 H (7-17) mg/dL Creatinine 1.08 H (0.52-1.04) mg/dL Total Bilirubin 1.7 H (0.2-1.3) mg/dL Alkaline Phosphatase 183 H (38-126) U/L Albumin 3.4 L (3.5-5.0) g/dL Urine Appearance (Clear) Urine Protein (Negative) Urine Blood (Negative) Ur Leukocyte Esterase (Negative) Urine RBC (0-5) /hpf Urine WBC (0-5) /hpf Triple Phos Crystals (None) /hpf Urine Bacteria (None) /hpf Urine Mucus (None) /hpf
[2022-10-01 15:02] VITALS: BP 138/76; RESP 19; TEMP 99.3
[2022-10-01] MEDS ORDERED: PIPERACILLIN-TAZOBACTAM 3.375 GM in SODIUM CHLORIDE 0.9% 100 ML IVPB SCH (16:00)
[2022-10-01 16:15] VITALS: PULSE 116
--- NOTE | 2022-10-01 17:29 | P.CNNES ---
History of Present Illness Consult date: 10/01/22 Requesting physician: Brett Nichols Reason for Consult: Encephalopathy History of Present Illness: Patient is a 87-year-old female came to the hospital by ambulance yesterday at 3:17 PM for altered mental status. Patient suffered from a fall on 09/14/2022 and suffered from hip fracture. Patient underwent arthroplasty and then was transferred to [facility] for rehab. Patient was doing relatively well, but when her granddaughter went to check on her yesterday, she was dehydrated, altered. Therefore she was brought to the hospital. Patient has been diagnosed with UTI, and pneumonia. Patient has history of mini strokes in the past for which she is on Plavix. She had about "handful" of TIAs in the past. At baseline patient used to walk by herself. She would use a cane sometimes, and often used to forget to use a cane. She was not a fan of walker although she has one. Patient does have dementia, which seems to have gotten worse after the fall and the surgery. EMS flow sheet not available in the chart. On arrival, vital signs blood pressure 133/74, pulse rate 100, temperature 98.9 axillary and respiration 14. Blood test shows WBC 13.7 hemoglobin 12.1, platelets 552. PT/PTT normal. D- dimer slightly elevated 6.14. PH 7.49, pCO2 36, saturation 91%. Sodium 159, potassium 4.0, BUN 66, creatinine 1.08. Hepatic panel normal. UA revealed large amount of leukocyte esterase, 125 WBC and occasional bacteria. Coronal virus PCR negative. Chest x-ray revealed mild cardiomegaly and COPD. Interstitial prominence could represent superimposed acute bronchitis. Scoliosis and chronic full-thickness rotator cuff tear on both sides. CT chest negative for embolic is him. COPD. Scattered septal thickening and patchy interstitial changes bilaterally. Patchy opacity posterior right base and mild groundglass in the left basilar or related to exclude atypical pneumonia or mild pulmonary vascular congestion. Some retained fluid seen throughout the thoracic esophagus could be due to esophageal dysmotility or gastroesophageal reflux disease. S-shaped scoliosis, osteopenia and suspected chronic T5 vertebral compression collapse. Bilateral rotator cuff arthropathy. EKG shows sinus rhythm. CT head revealed moderate generalized atrophy and moderate confluent burden of chronic small vessel ischemic disease. Changes have significantly progressed from the patient's 03/28/2010 MRI. No acute intracranial abnormality. Some scalp soft tissue nodularity superiorly along the right frontal convexity measuring up to 1.8 cm. Correlate with physical exam. I personally reviewed CT head, agree with the findings. Review of Systems ROS unobtainable: due to mental status Past Medical History Past Medical History: COPD, CVA/TIA, Hypertension Additional Past Medical History / Comment(s): hard of hearing. arthritis. dementia. chronic back pain History of Any Multi-Drug Resistant Organisms: None Reported Past Surgical History: Back Surgery, Orthopedic Surgery Additional Past Surgical History / Comment(s): hip fx 2022 Past Psychological History: No Psychological Hx Reported Smoking Status: Never smoker Past Alcohol Use History: None Reported Past Drug Use History: None Reported Medications and Allergies Home Medications Medication Instructions Recorded Confirmed Type Clopidogrel [Plavix] 75 mg PO DAILY@0903/31/21 09/30/22 History Multivitamins, Thera [Multivitamin 1 tab PO DAILY@89903/31/21 09/30/22 History (formulary)] Pantoprazole [Protonix] 40 mg PO DAILY@59903/31/21 09/30/22 History Acetaminophen Tab [Tylenol] 325 mg PO Q6H PRN 09/30/22 09/30/22 History Acetaminophen-Codeine 300-30mg 1 tab PO Q6H PRN 09/30/22 09/30/22 History [Tylenol w/codeine #3] Albuterol Inhaler [Ventolin Hfa 1 - 2 puff INHALATION RT-Q4H 09/30/22 09/30/22 History Inhaler] Aspirin EC [Ecotrin Low Dose] 81 mg PO BID@0900,2100 09/30/22 09/30/22 History Furosemide [Lasix] 20 mg PO DAILY@59909/30/22 09/30/22 History Isosorbide Mononitrate ER [Imdur] 30 mg PO DAILY@89909/30/22 09/30/22 History Lactose-Reduced Food [Ensure Plus] 1 can PO TID-W/MEALS 09/30/22 09/30/22 History Levothyroxine Sodium [Synthroid] 88 mcg PO DAILY@59909/30/22 09/30/22 History Melatonin 10 mg PO HS@2200 09/30/22 09/30/22 History Metoprolol Tartrate [Lopressor] 25 mg PO BID@0900,2100 09/30/22 09/30/22 History Potassium Chloride ER [K-Dur 10] 10 meq PO DAILY@0900 09/30/22 09/30/22 History Verapamil HCl [Verapamil ER] 120 mg PO DAILY@0900 09/30/22 09/30/22 History Allergies Allergy/AdvReac Type Severity Reaction Status Date / Time No Known Allergies Allergy Verified 09/30/22 18:54 Physical Examination - Vital Signs Vital Signs: Vital Signs Temp Pulse Pulse Resp BP BP Pulse Ox 10/01/22 12:12 112 H 10/01/22 12:00 108 H 10/01/22 09:11 120 H 10/01/22 09:01 114 H 10/01/22 08:44 90 L 10/01/22 08:15 34 H 10/01/22 08:00 34 H 10/01/22 07:11 98.8 F 76 16 135/74 95 10/01/22 01:52 98.1 F 88 18 122/75 95 09/30/22 21:15 97.8 F 72 18 100/65 98 09/30/22 20:20 68 16 104/60 92 L 09/30/22 19:00 75 20 106/59 96 09/30/22 18:00 63 24 140/66 94 L 09/30/22 17:50 75 111/66 98 09/30/22 17:40 68 111/66 100 09/30/22 17:30 71 09/30/22 17:20 69 71 L 09/30/22 17:00 94 24 115/62 98 09/30/22 16:50 81 115/62 68 L 09/30/22 16:40 80 115/62 09/30/22 16:30 80 131/71 09/30/22 16:29 80 12 115/62 90 L 09/30/22 16:20 89 131/71 09/30/22 16:10 81 131/71 95 09/30/22 16:00 101 H 40 H 114/67 09/30/22 15:52 98 40 H 114/67 97 09/30/22 15:50 98 133/74 09/30/22 15:40 98 133/74 98 09/30/22 15:30 98 133/74 99 09/30/22 15:26 98.9 F 93 40 H 133/74 98 09/30/22 15:23 100 Intake and Output 09/30/22 10/01/22 10/01/22 22:59 06:59 14:59 Other: Voiding Method Diaper Diaper # Voids 2 Weight 40.823 kg Patient is an elderly female, who appears to be in moderate respiratory distress. Patient is tachypneic, having shallow breathing. She has some gurgling noises. Patient is obtunded, minimally opens eyes to calling her name. She did not speak any words. Patient appears moribund. Attention, concentration and fund of knowledge is severely limited. On cranial nerve examination, pupils are equal, round and reacting to light, visual bunn could not be tested. Extraocular muscles could not be tested. Face is symmetric, patient did not protrude her tongue. Lower cranial nerves co uld not be tested. On muscle strength testing, there is no obvious focality noted. Patient keeps her arm up just for very brief moment and fairly fast and sat down to the bed. No focality. Patient did wiggle her feet/toes just a little to calling it. Deep tendon reflexes are symmetric and hypoactive and plantars are flat. Sensory to touch cannot be assessed. Patient does withdraw to painful stimuli equally. Cerebellar function cannot be tested. Tone and bulk of muscles normal. Gait deferred.. On general examination, there is no carotid bruit or murmur, S1-S2 audible. Chest is has coarse crackles, not of congestion. Abdomen is soft nontender. No organomegaly, bowel sounds present. Peripheral pulses are present. No edema. Results - Laboratory Findings CBC and BMP: 09/30/22 15:39 09/30/22 15:39 Abnormal Lab Findings: Abnormal Labs 09/30/22 09/30/22 09/30/22 15:30 15:39 15:39 WBC 13.7 H MCHC 29.8 L RDW 16.0 H Plt Count 552 H Neutrophils # 11.7 H D-Dimer 6.14 H ABG pH ABG pO2 ABG HCO3 ABG Total CO2 ABG O2 Saturation Sodium Chloride Carbon Dioxide BUN Creatinine Total Bilirubin Alkaline Phosphatase Albumin Urine Appearance Turbid H Urine Protein 1+ H Urine Blood Small H Ur Leukocyte Esterase Large H Urine RBC 21 H Urine WBC 125 H Triple Phos Crystals Few H Urine Bacteria Occasional H Urine Mucus Rare H 09/30/22 10/01/22 15:39 08:54 WBC MCHC RDW Plt Count Neutrophils # D-Dimer ABG pH 7.49 H ABG pO2 60 L ABG HCO3 27 H ABG Total CO2 28 H ABG O2 Saturation 91.8 L Sodium 159 H Chloride 117 H Carbon Dioxide 32 H BUN 66 H Creatinine 1.08 H Total Bilirubin 1.7 H Alkaline Phosphatase 183 H Albumin 3.4 L Urine Appearance Urine Protein Urine Blood Ur Leukocyte Esterase Urine RBC Urine WBC Triple Phos Crystals Urine Bacteria Urine Mucus Assessment and Plan Assessment: * Altered mental status, likely due to metabolic encephalopathy. Reasons multifactorial as mentioned below. * Failure to thrive * Possible aspiration pneumonia/UTI * Hypernatremia * Acute kidney injury * History of fall with right hip fracture, status post arthroplasty 09/14/2022 * Scoliosis of the spine * Chronic T5 vertebral compression collapse, likely chronic * Hypertension * Dementia Plan: * Patient is very tachypneic, moderately lethargic, appears to be in moderate respiratory distress. * Patient currently on Zosyn and azithromycin. * Patient's encephalopathy is reflective of underlying metabolic/infectious condition. Examination is nonfocal. * Medical management as per IM, pulmonary and other specialties on board. * Patient is a no code. Family considering hospice care. Appears appropriate. * Neurology will sign off. Please reconsult neurology if any concerns. Thank you for the consult.
[2022-10-01] MEDS ORDERED: METOPROLOL TARTRATE 25 MG TAB PO SCH (21:00)
[2022-10-01] MEDS ORDERED: ASPIRIN 81 MG PO SCH (21:00)
[2022-10-02] MEDS ORDERED: PANTOPRAZOLE 40 MG TABLET PO SCH (06:00)
[2022-10-02] MEDS ORDERED: LEVOTHYROXINE 88 MCG TAB PO SCH (06:00)
[2022-10-02] MEDS ORDERED: CLOPIDOGREL 75 MG TAB PO SCH (09:00)
--- NOTE | 2022-10-04 09:20 | P.DS ---
Providers Date of admission: 09/30/22 19:09 Expected date of discharge: 10/01/22 Attending physician: Tim Leal Consults: 10/01/22 08:22 Consult Physician Routine Consulting Provider: Son Ruiz Consult Reason/Comments: wheezing/shortness of breath/elevated respirations Do you want consulting provider notified?: Yes 10/01/22 09:33 Consult Physician Routine Consulting Provider: Alhaji Mustafa Consult Reason/Comments: Hypernatremia Do you want consulting provider notified?: Yes 10/01/22 09:37 Consult Physician Routine Consulting Provider: Seth Martínez Consult Reason/Comments: Encephalopathy Do you want consulting provider notified?: Yes Primary care physician: Boyd Montoya Hospital Course: Discharge diagnoses; Acute metabolic encephalopathy Hypernatremia Bacterial pneumonia Acute respiratory failure UTI Hospital course; patient is 87-year-old lady with past medical history significant for recent hip fracture, hypothyroidism, hypertension who was sent in by her nursing facility for change in mental status. Most of H&P has been taken from the electronic medical records because the patient current mental status, according to EMR nursing staff noticed it she was less responsive the last 24 hours. Did not notice any slurred speech. They didn't notice any weakness of any extremity. Initial lab work done in the ER showed WBC 13.7, hemoglobin 12.1, platelet count 552, sodium 159, potassium 4, BUN 66, creatinine 1.08 Chest x-ray done showed mild cardiomegaly and COPD, superimposed acute bron chitis CTA chest done showed no evidence of pulmonary embolus, showed COPD. Scattered septal thickening and patchy interstitial changes bilaterally, patchy opacity posterior right base and mild groundglass in the left base. Patient was admitted to medicine service. Pulmonology, nephrology were consulted. Patient had very poor prognosis, the case was discussed with patient's family and they decided to make patient comfort care, patient was discharged to hospice with admission to [facility] PHYSICAL EXAMINATION: GENERAL: The patient is obtunded, chronically ill-looking HEENT: Pupils are round and equally reacting to light. EOMI. No scleral icterus. No conjunctival pallor. Normocephalic, atraumatic. No pharyngeal erythema. No thyromegaly. CARDIOVASCULAR: S1 and S2 present. No murmurs, rubs, or gallops. PULMONARY: Coarse breath sounds bilaterally, expiratory rhonchi audible ABDOMEN: Soft, nontender, nondistended, normoactive bowel sounds. No palpable organomegaly. MUSCULOSKELETAL: No joint swelling or deformity. EXTREMITIES: No cyanosis, clubbing, or pedal edema. NEUROLOGICAL: Cannot be assessed at this time SKIN: No rashes. Patient Condition at Discharge: Poor Plan - Discharge Summary Discharge Rx Participant: No New Discharge Prescriptions: No Action Pantoprazole [Protonix] 40 mg PO DAILY@0600 Acetaminophen-Codeine 300-30mg [Tylenol w/codeine #3] 1 tab PO Q6H PRN PRN Reason: Pain Acetaminophen Tab [Tylenol] 325 mg PO Q6H PRN PRN Reason: Pain Or Fever > 100.5 Lactose-Reduced Food [Ensure Plus] 1 can PO TID-W/MEALS Potassium Chloride ER [K-Dur 10] 10 meq PO DAILY@0900 Levothyroxine Sodium [Synthroid] 88 mcg PO DAILY@0600 Isosorbide Mononitrate ER [Imdur] 30 mg PO DAILY@0900 Furosemide [Lasix] 20 mg PO DAILY@0600 Clopidogrel [Plavix] 75 mg PO DAILY@0900 Multivitamins, Thera [Multivitamin (formulary)] 1 tab PO DAILY@0900 Albuterol Inhaler [Ventolin Hfa Inhaler] 1 - 2 puff INHALATION RT-Q4H Metoprolol Tartrate [Lopressor] 25 mg PO BID@0900,2100 Aspirin EC [Ecotrin Low Dose] 81 mg PO BID@0900,2100 Verapamil HCl [Verapamil ER] 120 mg PO DAILY@0900 Melatonin 10 mg PO HS@2200 Discharge Medication List Clopidogrel [Plavix] 75 mg PO DAILY@0903/31/21 [History] Multivitamins, Thera [Multivitamin (formulary)] 1 tab PO DAILY@0903/31/21 [History] Pantoprazole [Protonix] 40 mg PO DAILY@0603/31/21 [History] Acetaminophen Tab [Tylenol] 325 mg PO Q6H PRN 09/30/22 [History] Acetaminophen-Codeine 300-30mg [Tylenol w/codeine #3] 1 tab PO Q6H PRN 09/30/22 [History] Albuterol Inhaler [Ventolin Hfa Inhaler] 1 - 2 puff INHALATION RT-Q4H 07/15/23 [History] Aspirin EC [Ecotrin Low Dose] 81 mg PO BID@09,209909/30/22 [History] Furosemide [Lasix] 20 mg PO DAILY@59909/30/22 [History] Isosorbide Mononitrate ER [Imdur] 30 mg PO DAILY@89909/30/22 [History] Lactose-Reduced Food [Ensure Plus] 1 can PO TID-W/MEALS 09/30/22 [History] Levothyroxine Sodium [Synthroid] 88 mcg PO DAILY@59909/30/22 [History] Melatonin 10 mg PO HS@219909/30/22 [History] Metoprolol Tartrate [Lopressor] 25 mg PO BID@899,209909/30/22 [History] Potassium Chloride ER [K-Dur 10] 10 meq PO DAILY@89909/30/22 [History] Verapamil HCl [Verapamil ER] 120 mg PO DAILY@89909/30/22 [History] Follow up Appointment(s)/Referral(s): Boyd Montoya MD [Primary Care Provider] - 1-2 days
== END 2022-10-01 17:29 | disposition hospice, inpatient (51) | DRG 871 ==
LOC: EC 15:17 → 4SSUR 19:09
PROVIDERS: ADMIT Hospitalist; ATTEND Hospitalist
DX: A41.9 Sepsis, unspecified organism (principal); G93.41 Metabolic encephalopathy; J96.00 Acute respiratory failure, unspecified whether with hypoxia or hypercapnia; J69.0 Pneumonitis due to inhalation of food and vomit; J15.9 Unspecified bacterial pneumonia; S22.059A Unspecified fracture of T5-T6 vertebra, initial encounter for closed fracture; E87.0 Hyperosmolality and hypernatremia; F03.93 Unspecified dementia, unspecified severity, with mood disturbance; J44.0 Chronic obstructive pulmonary disease with (acute) lower respiratory infection; N17.9 Acute kidney failure, unspecified; N39.0 Urinary tract infection, site not specified; Z68.1 Body mass index [BMI] 19.9 or less, adult; E03.9 Hypothyroidism, unspecified; E86.0 Dehydration; I10 Essential (primary) hypertension; J20.9 Acute bronchitis, unspecified; M41.9 Scoliosis, unspecified; M75.120 Complete rotator cuff tear or rupture of unspecified shoulder, not specified as traumatic; M85.80 Other specified disorders of bone density and structure, unspecified site; R32 Unspecified urinary incontinence; R62.7 Adult failure to thrive; Z79.02 Long term (current) use of antithrombotics/antiplatelets; Z79.890 Hormone replacement therapy; Z79.899 Other long term (current) drug therapy; Z86.73 Personal history of transient ischemic attack (TIA), and cerebral infarction without residual deficits; Z51.5 Encounter for palliative care
CPT/HCPCS: 36415; 36600; 70450; 71045; 71275; 80053; 81001; 82805; 83605; 85025; 85379; 85610; 85730; 87040; 87077; 87086; 87186; 87635; 93005; 94640; 94760; 96361; 96374; 99285

== ENCOUNTER 2022-10-01 16:44 | Inpatient (IN) | payer MEDICAID, MEDICARE ==
[2022-10-01] MEDS ORDERED: MORPHINE SULFATE 2 MG/ML SYRINGE IV PRN (16:48)
[2022-10-01] MEDS ORDERED: LORazepam 0.5 MG TAB PO PRN (16:48)
[2022-10-01] MEDS ORDERED: ACETAMINOPHEN SUPPOSITORY 650 MG SUPP RECTAL PRN (16:48)
[2022-10-01] MEDS ORDERED: LORazepam 2 MG/ML INJ IV PRN (18:15)
[2022-10-01] MEDS ORDERED: SCOPOLAMINE 1 MG/72 HR PATCH TRANSDERM SCH (18:30)
[2022-10-01 20:13] VITALS: BP 127/82; PULSE 132; TEMP 98.6
[2022-10-01] MEDS: MORPHINE CONC SOLN 10mg/0.5mL ORAL SYRG PO PRN (22:57)
[2022-10-02] MEDS: MORPHINE CONC SOLN 10mg/0.5mL ORAL SYRG PO PRN (03:16)
[2022-10-02 09:13] VITALS: BMI 17.5
[2022-10-02] MEDS ORDERED: DRY MOUTH SPRAY 44.3 SPRAY/44.3 ML SPRAY MUCOUS MEM PRN (10:01)
[2022-10-02] MEDS ORDERED: GLYCOPYRROLATE 0.2 MG/ML 2 ML VIAL IVP PRN (10:03)
[2022-10-02] MEDS ORDERED: ATROPINE OPHTH SOLN 1% 5ML BTL SUBLINGUAL PRN (10:03)
[2022-10-02] MEDS: MORPHINE SULFATE 2 MG/ML SYRINGE IV PRN ×2 (10:35→17:43)
[2022-10-02 10:54] VITALS: RESP 25
[2022-10-02] MEDS ORDERED: SCOPOLAMINE 1 MG/72 HR PATCH TRANSDERM SCH (11:00)
--- NOTE | 2022-10-02 14:09 | P.HPIM ---
History of Present Illness H&P Date: 10/02/22 History of present illness; patient is 87-year-old lady with past medical history significant for recent hip fracture, hypothyroidism, hypertension who was sent in by her nursing facility for change in mental status. Most of H&P has been taken from the electronic medical records because the patient current mental status, according to EMR nursing staff noticed it she was less responsive the last 24 hours. Did not notice any slurred speech. They didn't notice any weakness of any extremity. Initial lab work done in the ER showed WBC 13.7, hemoglobin 12.1, platelet count 552, sodium 159, potassium 4, BUN 66, creatinine 1.08 Chest x-ray done showed mild cardiomegaly and COPD, superimposed acute bronchitis CTA chest done showed no evidence of pulmonary embolus, showed COPD. Scattered septal thickening and patchy interstitial changes bilaterally, patchy opacity posterior right base and mild groundglass in the left base. Patient was admitted to medicine service. Pulmonology, nephrology were consulted. Patient had very poor prognosis, the case was discussed with janna ent's family and they decided to make patient comfort care, patient was transitioned to hospice with admission to [facility] REVIEW OF SYSTEMS: Review of systems cannot be obtained because patient is not arousable PHYSICAL EXAMINATION: GENERAL: The patient is obtunded, chronically ill-looking HEENT: Pupils are round and equally reacting to light. EOMI. No scleral icterus. No conjunctival pallor. Normocephalic, atraumatic. No pharyngeal erythema. No thyromegaly. CARDIOVASCULAR: S1 and S2 present. No murmurs, rubs, or gallops. PULMONARY: Coarse breath sounds bilaterally, expiratory rhonchi audible ABDOMEN: Soft, nontender, nondistended, normoactive bowel sounds. No palpable organomegaly. MUSCULOSKELETAL: No joint swelling or deformity. EXTREMITIES: No cyanosis, clubbing, or pedal edema. NEUROLOGICAL: Cannot be assessed at this time SKIN: No rashes. Assessment and plan Acute metabolic encephalopathy Hypernatremia Bacterial pneumonia Acute respiratory failure UTI Continue comfort care measures Continue when necessary Ativan Continue morphine as needed Past Medical History Past Medical History: COPD, CVA/TIA, Hypertension Additional Past Medical History / Comment(s): hard of hearing. arthritis. dementia. chronic back pain History of Any Multi-Drug Resistant Organisms: None Reported Past Surgical History: Back Surgery, Orthopedic Surgery Additional Past Surgical History / Comment(s): hip fx 2022 Past Psychological History: No Psychological Hx Reported Smoking Status: Never smoker Past Alcohol Use History: None Reported Past Drug Use History: None Reported Medications and Allergies Home Medications Medication Instructions Recorded Confirmed Type Clopidogrel [Plavix] 75 mg PO DAILY@89903/31/21 09/30/22 History Multivitamins, Thera [Multivitamin 1 tab PO DAILY@89903/31/21 09/30/22 History (formulary)] Pantoprazole [Protonix] 40 mg PO DAILY@59903/31/21 09/30/22 History Acetaminophen Tab [Tylenol] 325 mg PO Q6H PRN 09/30/22 09/30/22 History Acetaminophen-Codeine 300-30mg 1 tab PO Q6H PRN 09/30/22 09/30/22 History [Tylenol w/codeine #3] Albuterol Inhaler [Ventolin Hfa 1 - 2 puff INHALATION RT-Q4H 09/30/22 09/30/22 History Inhaler] Aspirin EC [Ecotrin Low Dose] 81 mg PO BID@0900,209909/30/22 09/30/22 History Furosemide [Lasix] 20 mg PO DAILY@59909/30/22 09/30/22 History Isosorbide Mononitrate ER [Imdur] 30 mg PO DAILY@89909/30/22 09/30/22 History Lactose-Reduced Food [Ensure Plus] 1 can PO TID-W/MEALS 09/30/22 09/30/22 History Levothyroxine Sodium [Synthroid] 88 mcg PO DAILY@59909/30/22 09/30/22 History Melatonin 10 mg PO HS@219909/30/22 09/30/22 History Metoprolol Tartrate [Lopressor] 25 mg PO BID@0900,209909/30/22 09/30/22 History Potassium Chloride ER [K-Dur 10] 10 meq PO DAILY@89909/30/22 09/30/22 History Verapamil HCl [Verapamil ER] 120 mg PO DAILY@89909/30/22 09/30/22 History Allergies Allergy/AdvReac Type Severity Reaction Status Date / Time No Known Allergies Allergy Verified 09/30/22 18:54 Physical Exam Vitals: Vital Signs Temp Pulse Resp BP Pulse Ox 10/02/22 10:49 25 H 10/01/22 19:12 98.6 F 132 H 18 127/82 83 L Intake and Output 10/01/22 10/02/22 10/02/22 22:59 06:59 14:59 Other: # Voids 2 2 # Bowel Movements 1 Weight 40.8 kg 40.8 kg
--- NOTE | 2022-10-02 14:12 | P.DS ---
Providers Date of admission: 10/01/22 17:40 Attending physician: Brett Nichols MD Primary care physician: Boyd Montoya Hospital Course: Discharge diagnoses; Acute metabolic encephalopathy Hypernatremia Bacterial pneumonia Acute respiratory failure UTI Hospital course; patient is 87-year-old lady with past medical history significant for recent hip fracture, hypothyroidism, hypertension who was sent in by her nursing facility for change in mental status. Most of H&P has been taken from the electronic medical records because the patient current mental status, according to EMR nursing staff noticed it she was less responsive the last 24 hours. Did not notice any slurred speech. They didn't notice any weakness of any extremity. Initial lab work done in the ER showed WBC 13.7, hemoglobin 12.1, platelet count 552, sodium 159, potassium 4, BUN 66, creatinine 1.08 Chest x-ray done showed mild cardiomegaly and COPD, superimposed acute bronchitis CTA chest done showed no evidence of pulmonary embolus, showed COPD. Scattered septal thickening and patchy interstitial changes bilaterally, patchy opacity posterior right base and mild groundglass in the left base. Patient was admitted to medicine service. Pulmonology, nephrology were consulted. Patient had very poor prognosis, the case was discussed with patient's family and they decided to make patient comfort care, patient was discharged to hospice with admission to [facility] PHYSICAL EXAMINATION: GENERAL: The patient is obtunded, chronically ill-looking HEENT: Pupils are round and equally reacting to light. EOMI. No scleral icterus. No conjunctival pallor. Normocephalic, atraumatic. No pharyngeal erythema. No thyromegaly. CARDIOVASCULAR: S1 and S2 present. No murmurs, rubs, or gallops. PULMONARY: Coarse breath sounds bilaterally, expiratory rhonchi audible ABDOMEN: Soft, nontender, nondistended, normoactive bowel sounds. No palpable organomegaly. MUSCULOSKELETAL: No joint swelling or deformity. EXTREMITIES: No cyanosis, clubbing, or pedal edema. NEUROLOGICAL: Cannot be assessed at this time SKIN: No rashes. Patient Condition at Discharge: Poor Plan - Discharge Summary New Discharge Prescriptions: No Action Pantoprazole [Protonix] 40 mg PO DAILY@0600 Acetaminophen-Codeine 300-30mg [Tylenol w/codeine #3] 1 tab PO Q6H PRN PRN Reason: Pain Acetaminophen Tab [Tylenol] 325 mg PO Q6H PRN PRN Reason: Pain Or Fever > 100.5 Lactose-Reduced Food [Ensure Plus] 1 can PO TID-W/MEALS Potassium Chloride ER [K-Dur 10] 10 meq PO DAILY@0900 Levothyroxine Sodium [Synthroid] 88 mcg PO DAILY@0600 Isosorbide Mononitrate ER [Imdur] 30 mg PO DAILY@0900 Furosemide [Lasix] 20 mg PO DAILY@0600 Clopidogrel [Plavix] 75 mg PO DAILY@0900 Multivitamins, Thera [Multivitamin (formulary)] 1 tab PO DAILY@0900 Albuterol Inhaler [Ventolin Hfa Inhaler] 1 - 2 puff INHALATION RT-Q4H Metoprolol Tartrate [Lopressor] 25 mg PO BID@0900,2099 Aspirin EC [Ecotrin Low Dose] 81 mg PO BID@0900,2100 Verapamil HCl [Verapamil ER] 120 mg PO DAILY@0900 Melatonin 10 mg PO HS@2199 Discharge Medication List Clopidogrel [Plavix] 75 mg PO DAILY@0900 03/31/21 [History] Multivitamins, Thera [Multivitamin (formulary)] 1 tab PO DAILY@0900 03/31/21 [History] Pantoprazole [Protonix] 40 mg PO DAILY@0603/31/21 [History] Acetaminophen Tab [Tylenol] 325 mg PO Q6H PRN 09/30/22 [History] Acetaminophen-Codeine 300-30mg [Tylenol w/codeine #3] 1 tab PO Q6H PRN 09/30/22 [History] Albuterol Inhaler [Ventolin Hfa Inhaler] 1 - 2 puff INHALATION RT-Q4H 09/30/22 [History] Aspirin EC [Ecotrin Low Dose] 81 mg PO BID@0900,2100 09/30/22 [History] Furosemide [Lasix] 20 mg PO DAILY@0600 09/30/22 [History] Isosorbide Mononitrate ER [Imdur] 30 mg PO DAILY@0909/30/22 [History] Lactose-Reduced Food [Ensure Plus] 1 can PO TID-W/MEALS 09/30/22 [History] Levothyroxine Sodium [Synthroid] 88 mcg PO DAILY@0609/30/22 [History] Melatonin 10 mg PO HS@2200 09/30/22 [History] Metoprolol Tartrate [Lopressor] 25 mg PO BID@0900,2100 09/30/22 [History] Potassium Chloride ER [K-Dur 10] 10 meq PO DAILY@0900 09/30/22 [History] Verapamil HCl [Verapamil ER] 120 mg PO DAILY@0900 09/30/22 [History]
== END 2022-10-02 21:30 | disposition expired | DRG 951 ==
LOC: 4SSUR 17:40
PROVIDERS: ADMIT Internal Medicine; ATTEND Internal Medicine
DX: Z51.5 Encounter for palliative care (principal); J96.00 Acute respiratory failure, unspecified whether with hypoxia or hypercapnia; J15.9 Unspecified bacterial pneumonia; G93.41 Metabolic encephalopathy; J44.0 Chronic obstructive pulmonary disease with (acute) lower respiratory infection; E87.0 Hyperosmolality and hypernatremia; N39.0 Urinary tract infection, site not specified; F03.90 Unspecified dementia, unspecified severity, without behavioral disturbance, psychotic disturbance, mood disturbance, and anxiety; Z66 Do not resuscitate; J20.9 Acute bronchitis, unspecified; I10 Essential (primary) hypertension; E03.9 Hypothyroidism, unspecified; Z79.02 Long term (current) use of antithrombotics/antiplatelets; Z79.890 Hormone replacement therapy; Z79.899 Other long term (current) drug therapy